=== PATIENT | female | born 1945 | race Caucasian/White ===

== ENCOUNTER 2021-08-23 15:25 | Inpatient (IN) ==
[2021-08-23] MEDS ORDERED: ACETAMINOPHEN 500 MG TABLET ONE (16:05)
[2021-08-23] MEDS ORDERED: ACETAMINOPHEN 500 MG TABLET PO STA (16:12)
[2021-08-23] MEDS ORDERED: SODIUM CHLORIDE 0.9% 1,000 ML IV STA (16:12)
[2021-08-23 16:45] LABS: Basophils % 0.3 % (0.0-0.8); Eosinophils % 0.1 % (0.00-10.9); Hematocrit 41.6 VOL% (35.7-47.0); Hemoglobin 13.6 GM/DL (12.0-16.0); Immature Granulocytes Absolute 0.11 #; Lymphocytes # 0.5 10*3/uL (1.4-4.0); Lymphocytes % 4.4 % (21.3-54.2); Mean Corpuscular HGB Conc 32.7 GM/DL (32-36); Mean Corpuscular Volume 89.8 FL (87-102); Mean Platelet Volume 10.7 FL (9.6-12.0); Monocytes % 2.2 % (1.7-12.7); Platelet Count 192 T/CUMM (130-400); Red Blood Count 4.63 MC/CUMM (3.8-5.5); Red Cell Distribution Width 13.9 % (9.3-17.3); White Blood Count 11.1 T/CUMM (4-12)
[2021-08-23 17:09] LABS: Albumin 3.5 G/DL (3.4-5.0); Bilirubin,Total 0.7 MG/DL (0.20-1.00); Calcium 9.3 MG/DL (8.5-10.1); Osmolality,Calculated 285.5 MOS/KG (273-304); Potassium 3.8 MMOL/L (3.5-5.1); Total Protein 6.6 G/DL (6.4-8.2)
[2021-08-23 17:11] LABS: Band Neutrophils 14 % (0-10); Burr Cells Few; Lymphocytes 5 % (20-55); Platelet Estimate Normal; Poikilocytosis Few; Segmented Neutrophils 78 % (50-85); Total Cells Counted 100
[2021-08-23 18:14] LABS: Bacteria,Urine Occasional /HPF (Few); Bilirubin,Urine Negative (Negative); Blood, Urine Moderate mg/dL (Negative); Glucose,Urine (UA) Negative (Negative); Ketones,Urine Negative (Negative); Mucus,Urine Few /LPF (Occasional); Nitrite,Urine Positive (Negative); Protein,Urine 100 MG/DL; RBC,Urine 7 /HPF (0-4); Squamous Epithelial Cell,Urine Occasional /HPF (0-10); Urine Appearance CLOUDY (Clear); Urine Color Yellow (Yellow); Urine Specific Gravity 1.017 (1.001-1.035); Urine Urobilinogen < 2.0 EU/DL (<2.0)
[2021-08-23] MEDS ORDERED: cefTRIAXone 1,000 MG in SODIUM CHLORIDE 0.9% 100 ML IV STA (18:19)
[2021-08-23] MEDS ORDERED: GLUCAGON 1 MG VIAL IM PRN (19:45)
[2021-08-23] MEDS ORDERED: hydrALAZINE 20 MG/1 ML VIAL IV PRN (19:45)
[2021-08-23] MEDS ORDERED: ONDANSETRON 4 MG/2 ML VIAL IV PRN (19:45)
[2021-08-23] MEDS ORDERED: DEXTROSE 10% 250 ML BAG IV PRN (19:55)
[2021-08-23] MEDS ORDERED: MORPHINE 2 MG/1 ML SYRINGE IV STA (20:38)
[2021-08-23] MEDS: SODIUM CHLORIDE 0.9% 1,000 ML IV SCH (21:02)
[2021-08-23] MEDS: INSULIN LISPRO 100 UNIT/ML SUBCUT SCH (21:05)
[2021-08-24 02:41] LABS: Basophils % 0.3 % (0.0-0.8); Eosinophils % 0.1 % (0.00-10.9); Hematocrit 36.7 VOL% (35.7-47.0); Hemoglobin 11.9 GM/DL (12.0-16.0); Immature Granulocytes % 1.7 %; Immature Granulocytes Absolute 0.25 #; Lymphocytes % 6.9 % (21.3-54.2); Mean Corpuscular HGB Conc 32.4 GM/DL (32-36); Mean Corpuscular Volume 91.1 FL (87-102); Mean Platelet Volume 10.6 FL (9.6-12.0); Monocytes % 9.8 % (1.7-12.7); Neutrophils % 81.2 % (38.7-73.9); Platelet Count 168 T/CUMM (130-400); Red Blood Count 4.03 MC/CUMM (3.8-5.5); Red Cell Distribution Width 14.2 % (9.3-17.3); White Blood Count 14.3 T/CUMM (4-12)
[2021-08-24 02:45] LABS: Calcium 8.9 MG/DL (8.5-10.1); Osmolality,Calculated 286.4 MOS/KG (273-304); Potassium 3.4 MMOL/L (3.5-5.1)
[2021-08-24 03:15] LABS: Lymphocytes 7 % (20-55); Platelet Estimate Adequate; Segmented Neutrophils 87 % (50-85); Total Cells Counted 100
[2021-08-24] MEDS ORDERED: POTASSIUM CHLORIDE 20 MEQ TABLET PO ONE (07:38)
[2021-08-24] MEDS: INSULIN LISPRO 100 UNIT/ML SUBCUT SCH ×4 (08:53→21:14)
[2021-08-24] MEDS ORDERED: MONTELUKAST 10 MG TABLET PO PRN (09:24)
[2021-08-24] MEDS: SODIUM CHLORIDE 0.9% 1,000 ML IV SCH ×2 (13:30→23:30)
[2021-08-24] MEDS: PANTOPRAZOLE 40 MG TABLET PO SCH (13:31)
[2021-08-24] MEDS: GABAPENTIN 100 MG CAPSULE PO SCH ×2 (13:31→21:15)
[2021-08-24] MEDS: predniSONE 5 MG TABLET PO SCH (13:31)
[2021-08-24] MEDS: ASPIRIN EC 325 MG TABLET PO SCH (13:31)
[2021-08-24] MEDS: ENOXAPARIN 40 MG/0.4 ML SYRINGE SUBCUT SCH (13:31)
[2021-08-24] MEDS: METOPROLOL SUCCINATE XL 50 MG TABLET PO SCH ×2 (13:32→21:15)
[2021-08-24] MEDS: PIPERACILLIN/TAZOBACTAM 3,375 MG in SODIUM CHLORIDE 0.9% 100 ML IV SCH (17:41)
[2021-08-24] MEDS ORDERED: cefTRIAXone 1,000 MG in SODIUM CHLORIDE 0.9% 100 ML IV SCH (18:00)
[2021-08-25] MEDS: PIPERACILLIN/TAZOBACTAM 3,375 MG in SODIUM CHLORIDE 0.9% 100 ML IV SCH ×3 (02:25→16:37)
[2021-08-25 06:02] LABS: Basophils % 0.3 % (0.0-0.8); Eosinophils # 0.1 10*3/uL (0.0-0.87); Hematocrit 37.7 VOL% (35.7-47.0); Hemoglobin 12.1 GM/DL (12.0-16.0); Immature Granulocytes Absolute 0.11 #; Lymphocytes # 0.9 10*3/uL (1.4-4.0); Lymphocytes % 8.1 % (21.3-54.2); Mean Corpuscular HGB Conc 32.1 GM/DL (32-36); Mean Corpuscular Volume 91.5 FL (87-102); Mean Platelet Volume 10.9 FL (9.6-12.0); Monocytes % 8.4 % (1.7-12.7); Neutrophils % 81.2 % (38.7-73.9); Platelet Count 180 T/CUMM (130-400); Red Blood Count 4.12 MC/CUMM (3.8-5.5); Red Cell Distribution Width 14.2 % (9.3-17.3); White Blood Count 10.8 T/CUMM (4-12)
[2021-08-25 06:30] LABS: Calcium 8.8 MG/DL (8.5-10.1); Osmolality,Calculated 281.5 MOS/KG (273-304); Potassium 3.8 MMOL/L (3.5-5.1)
[2021-08-25 06:31] LABS: Band Neutrophils 2 % (0-10); Eosinophils 1 % (0-10); Lymphocytes 8 % (20-55); Platelet Estimate Normal; Segmented Neutrophils 84 % (50-85); Total Cells Counted 100
[2021-08-25] MEDS: GABAPENTIN 100 MG CAPSULE PO SCH ×2 (09:48→20:51)
[2021-08-25] MEDS: PANTOPRAZOLE 40 MG TABLET PO SCH (09:48)
[2021-08-25] MEDS: ENOXAPARIN 40 MG/0.4 ML SYRINGE SUBCUT SCH (09:48)
[2021-08-25] MEDS: LEVOTHYROXINE 100 MCG TABLET PO SCH (09:49)
[2021-08-25] MEDS: predniSONE 5 MG TABLET PO SCH (09:49)
[2021-08-25] MEDS: METOPROLOL SUCCINATE XL 50 MG TABLET PO SCH ×2 (09:49→20:51)
[2021-08-25] MEDS: ASPIRIN EC 325 MG TABLET PO SCH (09:55)
[2021-08-25] MEDS: INSULIN LISPRO 100 UNIT/ML SUBCUT SCH ×4 (09:55→20:51)
[2021-08-25] MEDS: ACETAMINOPHEN 325 MG TABLET PO PRN (22:59)
[2021-08-26] MEDS: PIPERACILLIN/TAZOBACTAM 3,375 MG in SODIUM CHLORIDE 0.9% 100 ML IV SCH ×3 (01:42→16:55)
[2021-08-26 06:47] LABS: Basophils % 0.2 % (0.0-0.8); Eosinophils # 0.2 10*3/uL (0.0-0.87); Eosinophils % 1.8 % (0.00-10.9); Hematocrit 36.6 VOL% (35.7-47.0); Hemoglobin 11.9 GM/DL (12.0-16.0); Immature Granulocytes % 0.7 %; Immature Granulocytes Absolute 0.06 #; Lymphocytes # 1.2 10*3/uL (1.4-4.0); Lymphocytes % 14.3 % (21.3-54.2); Mean Corpuscular HGB Conc 32.5 GM/DL (32-36); Mean Corpuscular Volume 90.4 FL (87-102); Mean Platelet Volume 11.1 FL (9.6-12.0); Platelet Count 178 T/CUMM (130-400); Red Blood Count 4.05 MC/CUMM (3.8-5.5); Red Cell Distribution Width 14.1 % (9.3-17.3); White Blood Count 8.4 T/CUMM (4-12)
[2021-08-26 07:09] LABS: Calcium 9.3 MG/DL (8.5-10.1); Eosinophils 3 % (0-10); Hypochromia Slight; Lymphocytes 7 % (20-55); Microcytosis Slight; Osmolality,Calculated 278.7 MOS/KG (273-304); Platelet Estimate Adequate; Potassium 3.2 MMOL/L (3.5-5.1); Segmented Neutrophils 82 % (50-85); Total Cells Counted 100
[2021-08-26] MEDS ORDERED: POTASSIUM CHLORIDE 20 MEQ TABLET PO ONE (07:29)
[2021-08-26] MEDS: INSULIN LISPRO 100 UNIT/ML SUBCUT SCH ×4 (07:56→21:45)
[2021-08-26] MEDS: SODIUM CHLORIDE 0.9% 1,000 ML IV SCH ×2 (08:09→12:41)
[2021-08-26] MEDS ORDERED: ROSUVASTATIN 10 MG TABLET PO SCH (09:00)
[2021-08-26] MEDS: LEVOTHYROXINE 100 MCG TABLET PO SCH (09:20)
[2021-08-26] MEDS: METOPROLOL SUCCINATE XL 50 MG TABLET PO SCH ×2 (09:20→21:44)
[2021-08-26] MEDS: GABAPENTIN 100 MG CAPSULE PO SCH ×2 (09:20→21:44)
[2021-08-26] MEDS: predniSONE 5 MG TABLET PO SCH (09:20)
[2021-08-26] MEDS: PANTOPRAZOLE 40 MG TABLET PO SCH (09:20)
[2021-08-26] MEDS: ASPIRIN EC 325 MG TABLET PO SCH (09:21)
[2021-08-26] MEDS: ENOXAPARIN 40 MG/0.4 ML SYRINGE SUBCUT SCH (09:21)
[2021-08-27] MEDS: PIPERACILLIN/TAZOBACTAM 3,375 MG in SODIUM CHLORIDE 0.9% 100 ML IV SCH ×2 (01:54→09:30)
[2021-08-27 05:25] LABS: Basophils % 0.5 % (0.0-0.8); Eosinophils # 0.2 10*3/uL (0.0-0.87); Eosinophils % 1.8 % (0.00-10.9); Hematocrit 37.9 VOL% (35.7-47.0); Hemoglobin 12.3 GM/DL (12.0-16.0); Immature Granulocytes % 1.6 %; Immature Granulocytes Absolute 0.14 #; Lymphocytes # 1.5 10*3/uL (1.4-4.0); Lymphocytes % 16.7 % (21.3-54.2); Mean Corpuscular HGB Conc 32.5 GM/DL (32-36); Mean Corpuscular Volume 89.2 FL (87-102); Mean Platelet Volume 10.4 FL (9.6-12.0); Monocytes % 13.3 % (1.7-12.7); Neutrophils % 66.1 % (38.7-73.9); Platelet Count 216 T/CUMM (130-400); Red Blood Count 4.25 MC/CUMM (3.8-5.5); White Blood Count 8.9 T/CUMM (4-12)
[2021-08-27 05:56] LABS: Eosinophils 2 % (0-10); Lymphocytes 19 % (20-55); Platelet Estimate Adequate; Segmented Neutrophils 67 % (50-85); Total Cells Counted 100
[2021-08-27 07:30] LABS: Calcium 9.9 MG/DL (8.5-10.1); Osmolality,Calculated 274.8 MOS/KG (273-304); Potassium 3.9 MMOL/L (3.5-5.1)
[2021-08-27] MEDS: LEVOTHYROXINE 100 MCG TABLET PO SCH (09:20)
[2021-08-27] MEDS: METOPROLOL SUCCINATE XL 50 MG TABLET PO SCH ×2 (09:21→21:08)
[2021-08-27] MEDS: ASPIRIN EC 325 MG TABLET PO SCH (09:21)
[2021-08-27] MEDS: GABAPENTIN 100 MG CAPSULE PO SCH ×2 (09:21→21:08)
[2021-08-27] MEDS: PANTOPRAZOLE 40 MG TABLET PO SCH (09:21)
[2021-08-27] MEDS: predniSONE 5 MG TABLET PO SCH (09:22)
[2021-08-27] MEDS: INSULIN LISPRO 100 UNIT/ML SUBCUT SCH ×4 (09:23→21:09)
[2021-08-27] MEDS: ENOXAPARIN 40 MG/0.4 ML SYRINGE SUBCUT SCH (09:26)
[2021-08-27] MEDS: lisinopriL 20 MG TABLET PO SCH (10:19)
[2021-08-27] MEDS: cefTRIAXone 1,000 MG in SODIUM CHLORIDE 0.9% 100 ML IV SCH (11:19)
[2021-08-27] MEDS ORDERED: metFORMIN 500 MG TABLET PO PRN (17:59)
[2021-08-27] MEDS: SODIUM CHLORIDE 0.9% 1,000 ML IV SCH (23:33)
[2021-08-28 05:14] LABS: Basophils # 0.1 10*3/uL (0.0-0.2); Basophils % 0.5 % (0.0-0.8); Eosinophils # 0.3 10*3/uL (0.0-0.87); Eosinophils % 3.1 % (0.00-10.9); Hematocrit 38.8 VOL% (35.7-47.0); Hemoglobin 12.4 GM/DL (12.0-16.0); Lymphocytes # 2.1 10*3/uL (1.4-4.0); Lymphocytes % 21.1 % (21.3-54.2); Mean Platelet Volume 10.1 FL (9.6-12.0); Neutrophils % 60.3 % (38.7-73.9); Platelet Count 227 T/CUMM (130-400); Red Blood Count 4.36 MC/CUMM (3.8-5.5); Red Cell Distribution Width 13.6 % (9.3-17.3); White Blood Count 10.1 T/CUMM (4-12)
[2021-08-28 05:29] LABS: Calcium 9.2 MG/DL (8.5-10.1); Osmolality,Calculated 276.7 MOS/KG (273-304); Potassium 3.5 MMOL/L (3.5-5.1)
[2021-08-28] MEDS ORDERED: LOPERAMIDE 2 MG CAPSULE PO PRN (07:39)
[2021-08-28 08:01] LABS: High Sensitive Troponin I* 24.8 ng/L (0-54)
[2021-08-28] MEDS: ACETAMINOPHEN 325 MG TABLET PO PRN (09:25)
[2021-08-28] MEDS: ASPIRIN EC 325 MG TABLET PO SCH (09:25)
[2021-08-28] MEDS: PANTOPRAZOLE 40 MG TABLET PO SCH (09:26)
[2021-08-28] MEDS: ENOXAPARIN 40 MG/0.4 ML SYRINGE SUBCUT SCH (09:26)
[2021-08-28] MEDS: INSULIN LISPRO 100 UNIT/ML SUBCUT SCH ×4 (09:27→21:41)
[2021-08-28] MEDS: predniSONE 5 MG TABLET PO SCH (09:28)
[2021-08-28] MEDS: lisinopriL 20 MG TABLET PO SCH (09:29)
[2021-08-28] MEDS: GABAPENTIN 100 MG CAPSULE PO SCH ×2 (09:29→21:38)
[2021-08-28] MEDS: METOPROLOL SUCCINATE XL 50 MG TABLET PO SCH ×2 (09:29→21:37)
[2021-08-28] MEDS: LEVOTHYROXINE 100 MCG TABLET PO SCH (09:29)
[2021-08-28] MEDS: cefTRIAXone 1,000 MG in SODIUM CHLORIDE 0.9% 100 ML IV SCH (09:36)
[2021-08-28] MEDS ORDERED: NITROGLYCERIN SL 0.4 MG TABLET SL PRN (11:05)
[2021-08-28 14:31] LABS: High Sensitive Troponin I* 16.5 ng/L (0-54)
[2021-08-28] MEDS ORDERED: amLODIPine 5 MG TABLET PO SCH (15:00)
[2021-08-28] MEDS ORDERED: FUROSEMIDE 20 MG/2 ML VIAL IV ONE (16:00)
[2021-08-28] MEDS ORDERED: ROSUVASTATIN 20 MG TABLET PO SCH (21:00)
[2021-08-29] MEDS: SODIUM CHLORIDE 0.9% 1,000 ML IV SCH (05:16)
[2021-08-29 05:36] LABS: Basophils # 0.1 10*3/uL (0.0-0.2); Basophils % 0.6 % (0.0-0.8); Eosinophils # 0.4 10*3/uL (0.0-0.87); Eosinophils % 3.6 % (0.00-10.9); Hemoglobin 12.9 GM/DL (12.0-16.0); Immature Granulocytes % 3.8 %; Immature Granulocytes Absolute 0.37 #; Lymphocytes # 2.5 10*3/uL (1.4-4.0); Lymphocytes % 26.1 % (21.3-54.2); Mean Corpuscular HGB Conc 33.1 GM/DL (32-36); Mean Corpuscular Volume 87.8 FL (87-102); Monocytes % 9.4 % (1.7-12.7); Neutrophils % 56.5 % (38.7-73.9); Platelet Count 279 T/CUMM (130-400); Red Blood Count 4.44 MC/CUMM (3.8-5.5); Red Cell Distribution Width 13.8 % (9.3-17.3); White Blood Count 9.7 T/CUMM (4-12)
[2021-08-29 05:52] LABS: Calcium 9.6 MG/DL (8.5-10.1); Osmolality,Calculated 277.7 MOS/KG (273-304); Potassium 2.9 MMOL/L (3.5-5.1)
[2021-08-29 05:56] LABS: Risk Ratio 6.31; VLDL Cholesterol 43.2 MG/DL
[2021-08-29] MEDS ORDERED: amLODIPine 10 MG TABLET PO SCH (09:00)
[2021-08-29] MEDS: LEVOTHYROXINE 100 MCG TABLET PO SCH (09:27)
[2021-08-29] MEDS: PANTOPRAZOLE 40 MG TABLET PO SCH (09:27)
[2021-08-29] MEDS: lisinopriL 20 MG TABLET PO SCH (09:27)
[2021-08-29] MEDS: ASPIRIN EC 325 MG TABLET PO SCH (09:27)
[2021-08-29] MEDS: predniSONE 5 MG TABLET PO SCH (09:28)
[2021-08-29] MEDS: GABAPENTIN 100 MG CAPSULE PO SCH (09:28)
[2021-08-29] MEDS: METOPROLOL SUCCINATE XL 50 MG TABLET PO SCH (09:28)
[2021-08-29] MEDS: cefTRIAXone 1,000 MG in SODIUM CHLORIDE 0.9% 100 ML IV SCH (09:28)
[2021-08-29] MEDS: ENOXAPARIN 40 MG/0.4 ML SYRINGE SUBCUT SCH (09:29)
[2021-08-29] MEDS: INSULIN LISPRO 100 UNIT/ML SUBCUT SCH ×2 (10:05→13:20)
[2021-08-29] MEDS ORDERED: POTASSIUM CHLORIDE 20 MEQ TABLET PO ONE (12:00)
[2021-08-29 13:34] VITALS: BP 185/77
== END 2021-08-29 13:40 | disposition home or self-care (01) | DRG 690 ==
LOC: N.ED 15:25 → SUATTDRO 19:45 → N.EDINP 19:45 → N.5E 08-24 15:11
PROVIDERS: ADMIT Internal Medicine; ATTEND Internal Medicine